=== PATIENT | male | born 1995 | race Caucasian/White ===

== ENCOUNTER 2023-02-15 02:49 | Outpatient (CLI) | payer BC | END 2023-02-15 23:59 | disposition critical access hospital (66) | LOC: EMS 02:49 | DX: R10.11 Right upper quadrant pain (principal); R55 Syncope and collapse; R11.10 Vomiting, unspecified; R61 Generalized hyperhidrosis | CPT/HCPCS: A0425; A0427 ==

== ENCOUNTER 2023-02-15 03:10 | Emergency (ER) | payer BC ==
[2023-02-15] MEDS ORDERED: SODIUM CHLORIDE 0.9% 1,000 ML IV STA (03:15)
[2023-02-15] MEDS ORDERED: MORPHINE 10 MG/ML VIAL IVP STA (03:15)
--- NOTE | 2023-02-15 03:18 | ED Physician Documentation ---
History of Present Illness - Stated complaint Stated Complaint: R FLANK PX - History obtained from History obtained from: Patient - Additonal information Additional information: 27yM previously healthy p/w R flank pain intermittent sharp and sudden onset tonight radiating to RLQ with associated nausea but no vomiting. also with dark colored urine. denies dysuria, fever Review of Systems Constitutional: denies: Fever, Chills GI: reports: Abdominal Pain, Nausea. denies: Vomiting, Diarrhea : denies: Dysuria, Frequency Musculoskeletal: reports: Back pain PD PAST MEDICAL HISTORY - Present Medications Home Medications: Ambulatory Orders Medication Instructions Recorded Confirmed Ondansetron Odt [Zofran Odt] 4 mg TL Q6H PRN #10 tablet 02/15/23 Tamsulosin [Flomax] 0.4 mg PO DAILY 14 Days #14 tab 02/15/23 - Allergies Allergies/Adverse Reactions: Allergies Allergy/AdvReac Type Severity Reaction Status Date / Time No Known Drug Allergies Allergy Verified 02/15/23 03:23 PD ED PE NORMAL - Vitals Vital signs reviewed: Yes - General General: Alert and oriented X 3, No acute distress, Well developed/nourished - HEENT HEENT: Atraumatic, PERRL, EOMI - Neck Neck: Supple, no meningeal sign - Cardiac Cardiac: RRR - Respiratory Respiratory: No respiratory distress, Clear bilaterally - Abdomen Abdomen: Non tender, Non distended - Back Back: Other (R CVA ttp) Results - Vitals Vitals: Vital Signs - 24 hr 02/15/23 02/15/23 03:10 03:55 Temperature 36.9 C Heart Rate 78 65 Respiratory 18 16 Rate Blood Pressure 147/89 H 123/78 O2 Saturation 99 98 Oxygen O2 Source Room air - Labs Labs: Laboratory Tests 02/15/23 02/15/23 02/15/23 03:45 03:52 03:52 WBC 10.5 RBC 5.07 Hgb 14.1 Hct 43.0 MCV 84.8 MCH 27.8 MCHC 32.8 RDW 12.8 Plt Count 202 MPV 10.0 Neut # (Auto) 7.9 H Lymph # (Auto) 1.9 [place] # (Auto) 0.6 Eos # (Auto) 0.1 Baso # (Auto) 0.0 Absolute Nucleated RBC 0.00 Nucleated RBC % 0.0 Sodium 139 Potassium 3.6 Chloride 107 Carbon Dioxide 24 Anion Gap 8.0 BUN 13 Creatinine 0.9 Estimated GFR (MDRD) 100 Glucose 113 H Calcium 8.5 Total Bilirubin 0.5 AST 17 ALT 21 Alkaline Phosphatase 54 Total Protein 7.2 Albumin 4.4 Globulin 2.8 Albumin/Globulin Ratio 1.6 Lipase 15 Urine Color BROWN Urine Clarity CLOUDY Urine pH Ur Specific [place] >=1.030 H Urine Protein Urine Glucose (UA) NEGATIVE Urine Ketones Urine Occult Blood LARGE H Urine Nitrite Urine Bilirubin NEGATIVE Urine Urobilinogen Ur Leukocyte Esterase Urine RBC TNTC H Urine WBC 0-3 Ur Squamous Epith Cells RARE Squamous Urine Crystals 3-5 Calcium Oxalate Amorphous Sediment Moderate Urine Bacteria Rare Ur Microscopic Review INDICATED Urine Culture Comments NOT INDICATED PD Medical Decision Making - ED course ED course: 7-year-old man, previously healthy presents with right flank pain concerning for kidney stones versus musculoskeletal origin. Will obtain CBC, abdominal panel, urinalysis, CT abdomen and pelvis and provide IV fluids and morphine. Pain improved s/p morphine. Patient had IV Zofran and Toradol with EMS with improvement in pain and resolution of nausea. moderate R hypronephrosis with R proximal ureter stone. u/a no signs of infection. creatinine normal . Strict return precautions given. f/u urology. Departure - Departure Disposition: 01 Home, Self Care Clinical Impression: Kidney stones Condition: Stable Instructions: Kidney Stones Follow-Up: Partha Fuller MD [Provider Admit Priv/Credential] - Prescriptions: Tamsulosin [Flomax] 0.4 mg PO DAILY 14 Days #14 tab Ondansetron Odt [Zofran Odt] 4 mg TL Q6H PRN #10 tablet PRN Reason: Nausea / Vomiting Comments: You were seen in the emergency department for kidney stone. Prescriptions sent to [facility] in [place]. For percoset - Do not use when driving or operating heavy machinery. Dispose of any unused pills at your local police station. This medication may cause co nstipation. If you are prone to constipation then please take with [id number] sennadocusate and MiraLAX. Please follow-up with urology and return to the emergency department if you have any new or worsening symptoms or other concerns.
[2023-02-15 04:03] VITALS: O2SAT 98
[2023-02-15 04:05] LABS: BASOPHILS % (AUTO) 0.4 %; EOSINOPHILS # (AUTO) 0.1 10^3/uL (0.0-0.7); EOSINOPHILS % (AUTO) 0.6 %; HGB - HEMOGLOBIN 14.1 g/dL (14.0-18.0); LYMPHOCYTES # (AUTO) 1.9 10^3/uL (1.5-3.5); LYMPHOCYTES % (AUTO) 17.9 %; MEAN CORPUSCULAR HEMOGLOBIN 27.8 pg (27.0-31.0); MEAN CORPUSCULAR HGB CONC 32.8 g/dL (32.0-36.0); MEAN CORPUSCULAR VOLUME 84.8 fL (80.0-94.0); MONOCYTES # (AUTO) 0.6 10^3/uL (0.0-1.0); MONOCYTES % (AUTO) 5.6 %; NEUTROPHILS # (AUTO) 7.9 10^3/uL (1.5-6.6); NEUTROPHILS % (AUTO) 75.1 %; PLT - PLATELET COUNT 202 10^3/uL (130-450); RED BLOOD COUNT 5.07 10^6/uL (4.70-6.10); RED CELL DISTRIBUTION WIDTH 12.8 % (12.0-15.0); WHITE BLOOD COUNT 10.5 x10^3/uL (4.8-10.8)
[2023-02-15] MEDS ORDERED: ONDANSETRON 4 MG/2 ML VIAL IVP STA (04:12)
[2023-02-15 04:15] LABS: BILIRUBIN,URINE NEGATIVE (NEGATIVE); GLUCOSE, URINE (UA) NEGATIVE (NEGATIVE); OCCULT BLOOD,URINE LARGE (NEGATIVE)
[2023-02-15 04:19] LABS: ALBUMIN 4.4 g/dL (3.2-5.5); ALBUMIN/GLOBULIN RATIO 1.6 (1.0-2.2); BILIRUBIN,TOTAL 0.5 mg/dL (0.2-1.0); CALCIUM 8.5 mg/dL (8.5-10.3); CREATININE 0.9 mg/dL (0.6-1.3); POTASSIUM 3.6 mmol/L (3.5-4.5); TOTAL PROTEIN 7.2 g/dL (6.4-8.9)
[2023-02-15 04:28] LABS: CLARITY,URINE CLOUDY (CLEAR)
[2023-02-15 04:30] LABS: AMORPHOUS SEDIMENT,UR Moderate /LPF; BACTERIA,URINE Rare /HPF (None Seen); CRYSTALS,URINE 3-5 Calcium Oxalate /LPF; RBC,URINE TNTC /HPF (0-5); SQUAMOUS EPITHELIAL CELL,UR RARE Squamous (<= Few); WBC,URINE 0-3 /HPF (0-3)
[2023-02-15] MEDS ORDERED: oxyCODONE/ACET 5/325 Prepack 4 PO STA (06:09)
[2023-02-15] MEDS ORDERED: ONDANSETRON ODT 4 MG Prepack 2 TL PRN (06:09)
[2023-02-15 07:06] VITALS: BP 124/81
--- NOTE | 2023-02-15 08:27 | CT Report ---
PROCEDURE: Abdomen/Pelvis WO INDICATIONS: R flank pain TECHNIQUE: A CT scan of the abdomen and pelvis was performed without the use of intravenous contrast. Images we re recorded and evaluated at appropriate window settings. Reformats: coronal and sagittal. For radiat ion dose reduction, the following was used: automated exposure control, adjustment of mA and/or kV ac cording to patient size. COMPARISON: None. FINDINGS: Image quality: Excellent. Lung bases and heart: Unremarkable. Liver: No contour-deforming mass. Gallbladder and biliary tree: Normal gallbladder. Nondilated biliary tree. Spleen: No splenomegaly. Pancreas: No pancreatic ductal dilation. Adrenals: No adrenal nodule. Kidneys and ureters: Lobulated renal cortices bilaterally. Punctate nonobstructing right upper pole i ntrarenal calculus. Mild hyperdensity at the papilla tips bilaterally. Mild right hydronephrosis. A 4 mm obstructing stone in the proximal right ureter. Distal right and left ureters are normal. Bowel and peritoneum: Stomach and small bowel are normal. Normal appendix. Decompressed colon. Lymph nodes: No central or retroperitoneal adenopathy. Vessels: No infrarenal aortic aneurysm. PELVIS Reproductive organs: Normal size prostate gland. Bladder: No wall thickness, accounting for underdistention. Pelvic lymph nodes: No pelvic adenopathy by size criteria. Bones: No aggressive osseous abnormality. Other: No significant ventral or inguinal hernia. IMPRESSION: 1. 4 mm right proximal ureteral stone causing mild right hydronephrosis. 2. Final interpretation concordant with preliminary report. Reviewed by: Rula Riley MD on 02/15/2023 8:25 AM PST Approved by: Rula Riley MD on 02/15/2023 8:25 AM PST Station ID: [id number]
== END 2023-02-15 06:59 | disposition home or self-care (01) ==
LOC: EDUNIT# → ED 03:10
DX: N13.2 Hydronephrosis with renal and ureteral calculous obstruction (principal)
CPT/HCPCS: 36415; 80053; 81001; 81003; 83690; 85025; 87086; 96374; 96375; 99284